=== PATIENT | female | born 1980 | race Caucasian/White ===

== ENCOUNTER 2018-03-28 00:20 | Emergency (ER) | payer MEDICARE ==
[~2018-03-28] VITALS: Ht 167.6 cm; Wt 88.4 kg
[2018-03-28] MEDS ORDERED: KETOROLAC 60MG/2ML VIAL IM ONE (07:15)
[2018-03-28 07:25] VITALS: BP 110/70
== END 2018-03-28 09:12 | disposition home or self-care (01) ==
LOC: ER 02:19
DX: M25.552 Pain in left hip (principal); E11.9 Type 2 diabetes mellitus without complications; F12.10 Cannabis abuse, uncomplicated; Z98.890 Other specified postprocedural states; Z59.0 Homelessness; Z91.81 History of falling
CPT/HCPCS: 73502; 81025; 96372; 99284; J1885